=== PATIENT | female | born 1950 | race Caucasian/White ===

== ENCOUNTER 2016-09-29 07:38 | Outpatient (CLI) | payer MEDICAID | END 2016-09-29 23:59 | DX: I10 Essential (primary) hypertension (principal); E78.5 Hyperlipidemia, unspecified ==

== ENCOUNTER 2016-10-14 10:08 | Outpatient (CLI) | payer MEDICAID ==
--- NOTE | 2016-10-15 16:47 | Mammography Report ---
DIGITAL BILATERAL SCREENING MAMMOGRAM: 10/14/2016 CLINICAL HISTORY: A 65-year-old asymptomatic female. TECHNIQUE: Routine CC and MLO projections were obtained of the breasts. Bilateral exaggerated CC vie ws. COMPARISON: 05/2015, 10/2012, 06/2011, 05/2010, 05/2009. FINDINGS: Parenchymal tissue within both breasts is heterogeneously dense, which may lower the sensi tivity of mammography; however, there are no dominant masses, suspicious microcalcifications, or seco ndary signs of malignancy. In comparison to the previous studies, there are no significant changes. The pattern of glandular asymmetry is stable given positional differences. ASSESSMENT: NO MAMMOGRAPHIC EVIDENCE OF MALIGNANCY. NO SIGNIFICANT INTERVAL CHANGES. RECOMMENDATION: Screening mammography is recommended annually. BIRADS category 1 - negative. STANDARD QUALIFYING STATEMENTS 1. This examination was reviewed with the aid of Computed-Aided Detection (CAD). 2. A negative or benign imaging report should not delay biopsy if clinically suspicious findings are present. Consider surgical consultation if warranted. More than 5% of cancers are not identified by i maging. 3. Dense breasts may obscure an underlying neoplasm. JOB #: [id number] EXT JOB #:[id number]
== END 2016-10-14 10:09 | disposition home or self-care (01) ==
LOC: DI.N 10:08
PROVIDERS: ATTEND Nurse Practitioner Family
DX: Z12.31 Encounter for screening mammogram for malignant neoplasm of breast (principal)
CPT/HCPCS: 77067

== ENCOUNTER 2016-10-21 10:15 | Day surgery (SDC) | payer MEDICAID ==
[2016-10-21] MEDS ORDERED: LACTATED RINGERS 1,000 ML IV ONE ×2 (10:35→13:51)
[2016-10-21] MEDS ORDERED: fentaNYL 250 MCG/5 ML VIAL IVP ONE (13:00)
[2016-10-21] MEDS ORDERED: MIDAZOLAM 2 MG/2 ML VIAL IVP ONE (13:00)
== END 2016-10-21 10:16 | disposition home or self-care (01) ==
PROC: 0DBN8ZX Excision of Sigmoid Colon, Via Natural or Artificial Opening Endoscopic, Diagnostic (ICD-10-PCS; 2016-10-21)
PROC: 0DBP8ZX Excision of Rectum, Via Natural or Artificial Opening Endoscopic, Diagnostic (ICD-10-PCS; principal; 2016-10-21 11:15)
DX: Z12.11 Encounter for screening for malignant neoplasm of colon (principal); D12.5 Benign neoplasm of sigmoid colon; K62.1 Rectal polyp; K64.8 Other hemorrhoids; Z86.010 Personal history of colon polyps; F17.210 Nicotine dependence, cigarettes, uncomplicated; Z88.5 Allergy status to narcotic agent
CPT/HCPCS: 45380; J3010; J7120

== ENCOUNTER 2017-01-11 08:38 | Emergency (ER) | payer MEDICAID, MEDICARE ==
--- NOTE | 2017-01-11 09:42 | ED Physician Documentation ---
History of Present Illness - Stated complaint Stated Complaint: FEMALE - Chief complaint Chief Complaint: Abd Pain - Additonal information Additional information: hx from pt 66 f several weeks of worsening R inguinal pain she works as a stock supervisor and thought it was msucular but not better no fever no ab pain no NVD, no urinary sx no numbness or weakness s.p appy john CS and hyst but still has ovaries Review of Systems Constitutional: denies: Fever, Chills Cardiac: denies: Chest pain / pressure Respiratory: denies: Dyspnea GI: denies: Abdominal Pain : denies: Dysuria Musculoskeletal: reports: Extremity pain (R inguinal) Endocrine: denies: Easy bruising / bleeding Immunocompromised: denies: Immunocompromised PD PAST MEDICAL HISTORY - Past Surgical History General: Cholecystectomy, Appendectomy, Colonoscopy - Present Medications Home Medications: Ambulatory Orders Medication Instructions Recorded Confirmed Amlodipine/Atorvastatin 1 each PO DAILY 10/20/16 01/11/17 [Amlodipine-Atorvast 10-10 mg] Aspirin [Aspir-Low] 81 mg PO DAILY 10/20/16 01/11/17 Meloxicam [Mobic] 7.5 mg PO DAILY 10/20/16 01/11/17 Multivit with Calcium,Iron,Min 1 each PO DAILY 10/20/16 01/11/17 [Multiple Vitamins For Women] Triamterene/Hydrochlorothiazid 1 each PO DAILY 10/20/16 01/11/17 [Triamterene-Hctz 75-50 mg Tab] Cyclobenzaprine [Flexeril] 10 mg PO TID PRN #20 tablet 01/11/17 Ibuprofen [Motrin] 400 mg PO Q6H PRN #30 tablet 01/11/17 Lidocaine Patch 5% [Lidoderm Patch] 1 each TOP DAILY PRN #10 patch 01/11/17 - Allergies Allergies/Adverse Reactions: Allergies Allergy/AdvReac Type Severity Reaction Status Date / Time codeine AdvReac Nausea Verified 01/11/17 09:48 Hcpurci-Ole-Bmz Reductase AdvReac Itching Verified 01/11/17 09:48 Inhibitor PD ED PE NORMAL - Vitals Vital signs reviewed: Yes - General General: Alert and oriented X 3 - HEENT HEENT: PERRL - Neck Neck: Supple, no meningeal sign. No: No adenopathy (approx 1 cm smooth mobile high right ant cervical node - no clavicular or axillary adenopathy noted) - Cardiac Cardiac: RRR - Respiratory Respiratory: No respiratory distress, Clear bilaterally - Abdomen Abdomen: Soft, Non tender - Derm Derm: Normal color - Extremities Extremities: Other (TTP along inguina crease and very low RLQ, less so proximal medial thigh, no swelling or erythema, small viral inguinal adenopathy) Results - Vitals Vitals: Vital Signs - 24 hr 01/11/17 08:49 Temperature 36.5 C Heart Rate 96 Respiratory 20 Rate Blood Pressure 149/87 H O2 Saturation 96 Oxygen O2 Source Room air - Labs Labs: Laboratory Tests 01/11/17 01/11/17 09:45 10:30 WBC 15.8 H RBC 4.58 Hgb 13.8 Hct 40.4 MCV 88.2 MCH 30.2 MCHC 34.2 RDW 13.4 Plt Count 437 MPV 6.7 L Neut # 11.0 H Lymph # 3.7 H Coos # 0.8 Eos # 0.1 Baso # 0.1 Absolute Nucleated RBC 0.01 Nucleated RBCs 0.1 Urine Color YELLOW Urine Clarity CLEAR Urine pH 7.5 Ur Specific [place] <=1.005 Urine Protein NEGATIVE Urine Glucose (UA) NEGATIVE Urine Ketones NEGATIVE Urine Occult Blood NEGATIVE Urine Nitrite NEGATIVE Urine Bilirubin NEGATIVE Urine Urobilinogen 0.2 (NORMAL) Ur Leukocyte Esterase NEGATIVE Ur Microscopic Review NOT INDICATED Urine Culture Comments NOT INDICATED PD MEDICAL DECISION MAKING - ED course ED course: UA, CT and 2/2 cervical and inguinal adenopathy will get CBC Departure - Departure Disposition: 01 Home, Self Care Clinical Impression: Right inguinal pain Condition: Good Instructions: ED Strain Muscle Ext Follow-Up: Haley Casillas ARNP [Primary Care Provider] - (this week ) Prescriptions: Cyclobenzaprine [Flexeril] 10 mg PO TID PRN #20 tablet PRN Reason: Spasms Lidocaine Patch 5% [Lidoderm Patch] 1 each TOP DAILY PRN #10 patch PRN Reason: Pain Ibuprofen [Motrin] 400 mg PO Q6H PRN #30 tablet PRN Reason: Pain Comments: The CT scan was fine - no deep hernia or deep infection and no significant swollen lymph nodes within the abdominal cavity Your labs were fine too - the white blood cell count was a little bit elevated which can happen with stress, pain inflammation, and/or infection. So I think the pain is muscular - recommend anti-inflammatories, muscle relaxants and lidocaine patches applied up to 12 hr a day Several enlarged lymph nodes were noticed in the neck and inguinal region on exam today - this can occur with inflammation and infection but also with certain cancers - it is important that you follow up with your PMD for further evaluation Please get your blood pressure rechecked too - it was high today
[2017-01-11 09:54] LABS: BILIRUBIN,URINE NEGATIVE (NEGATIVE); PH,URINE 7.5 PH (5.0-7.5)
[2017-01-11 09:59] LABS: UA CHARGE (STRIP ONLY) YES; UR CULTURE IF IND NOT INDICATED
[2017-01-11 10:38] LABS: BASOPHILS # (AUTO) 0.1 10^3/uL (0.0-0.1); BASOPHILS % (AUTO) 0.7 %; EOSINOPHILS # (AUTO) 0.1 10^3/uL (0.0-0.7); EOSINOPHILS % (AUTO) 0.6 %; HCT - HEMATOCRIT 40.4 % (37.0-47.0); HGB - HEMOGLOBIN 13.8 g/dL (12.0-16.0); LYMPHOCYTES # (AUTO) 3.7 10^3/uL (1.5-3.5); LYMPHOCYTES % (AUTO) 23.8 %; MEAN CORPUSCULAR HEMOGLOBIN 30.2 pg (27.0-31.0); MEAN CORPUSCULAR HGB CONC 34.2 g/dL (32.0-36.0); MEAN CORPUSCULAR VOLUME 88.2 fL (81.0-99.0); MEAN PLATELET VOLUME 6.7 fL (7.9-10.8); MONOCYTES # (AUTO) 0.8 10^3/uL (0.0-1.0); NEUTROPHILS % (AUTO) 69.9 %; NUCLEATED RED BLOOD CELLS AUTO 0.1 /100WBC; RED BLOOD COUNT 4.58 10^6/uL (4.20-5.40); RED CELL DISTRIBUTION WIDTH 13.4 % (12.0-15.0); UNCORRECTED WHITE BLOOD COUNT 15.8 x10^3/uL; WHITE BLOOD COUNT 15.8 x10^3/uL (4.8-10.8)
--- NOTE | 2017-01-11 10:51 | CT Preliminary Report ---
Exam: CT Abdomen/Pelvis W/O IMPRESSION: 1. No renal or ureteral stones and no hydronephrosis on either side. 2. No acute focal inflammatory changes or evidence of obstruction identified within the abdomen or pe lvis. 3. No adenopathy. 4. No inguinal hernia visualized. [facility] SITE ID: [id number]
--- NOTE | 2017-01-11 10:54 | CT Report ---
EXAM: CT ABDOMEN AND PELVIS (CT KUB) EXAM DATE: 01/11/2017 10:26 AM. CLINICAL HISTORY: Very low RLQ / inguinal pain and adenopathy. COMPARISONS: None. TECHNIQUE: Routine axial helical CT imaging was performed through the abdomen and pelvis without IV c ontrast. Reconstructions: Coronal and sagittal. In accordance with CT protocol optimization, one or more of the following dose reduction techniques w ere utilized for this exam: automated exposure control, adjustment of mA and/or KV based on patient s ize, or use of iterative reconstructive technique. FINDINGS: Lung Bases: Small amount of linear atelectasis/scarring. Right Kidney/Ureter: No stones, hydronephrosis, or hydroureter. No perinephric fat stranding. Left Kidney/Ureter: No stones, hydronephrosis, or hydroureter. No perinephric fat stranding. Other Solid Organs: Ovoid possible cyst within the left lobe measuring approximately 1.6 cm. Punctate calcification in the right lobe near the dome. Spleen, bladder appear unremarkable. Right adrenal ap pears unremarkable. Mild thickening with possible low-attenuation nodule of the left adrenal, suggest ing an adenoma. Gallbladder/Bile Ducts: Prior cholecystectomy. No biliary ductal dilation. Peritoneal Cavity: No bowel obstruction. No acute focal inflammatory change or no discrete collection . No bulky adenopathy. No free air. No free fluid. Mild colonic diverticulosis. Appendix not definiti vely visualized. Pelvic Organs: Urinary bladder appears unremarkable. Uterus appears surgically absent. Vasculature: Mild atherosclerotic vascular calcification. No aneurysmal dilation. Other: Mild apparent bony demineralization and degenerative change of the spine. No inguinal hernia visualized. IMPRESSION: 1. No renal or ureteral stones and no hydronephrosis on either side. 2. No acute focal inflammatory changes or evidence of obstruction identified within the abdomen or pe lvis. 3. No adenopathy. 4. No inguinal hernia visualized. [facility] Referring Provider Line: [phone] SITE ID: [id number]
[2017-01-11 11:24] VITALS: BP 136/77
== END 2017-01-11 11:36 | disposition home or self-care (01) ==
LOC: ED 08:38
DX: R10.2 Pelvic and perineal pain (principal); R03.0 Elevated blood-pressure reading, without diagnosis of hypertension; Z79.82 Long term (current) use of aspirin
CPT/HCPCS: 36415; 74176; 81001; 81003; 85025; 87086; 99283; 99284

== ENCOUNTER 2017-01-27 08:08 | Outpatient (CLI) | payer MEDICAID, MEDICARE ==
--- NOTE | 2017-01-27 12:43 | DEXA Report ---
DEXA SCAN: 01/27/2017 CLINICAL INDICATION: Postmenopausal. TECHNIQUE: Dual energy x-ray absorptiometry (DXA) was performed on a [employer] system. Regions measured are the AP spine, femoral neck, and, if needed, forearm. COMPARISON: None. In accordance with the International Society for Clinical Densitometry (ISCD) guidelines, data from previous exams may be reanalyzed using current recommendations and techniques. This is done to allow a more accurate basis for comparison with the current study. FINDINGS: The data for the lumbar spine is as follows: REGION BMD (g/cm/cm) T-SCORE Z-SCORE L1 1.031 -0.8 0.7 L2 1.00 -1.7 -0.1 L3 1.092 -0.9 0.6 L4 1.143 -0.5 1.0 TOTAL 1.072 -0.9 0.6 NOTE: All evaluable vertebrae are used for classification. The data for the hip is as follows: REGION BMD (g/cm/cm) T-SCORE Z-SCORE Neck 0.960 -0.6 0.9 TOTAL 0.960 -0.4 0.8 NOTE: The femoral neck or total proximal femur, whichever is lowest, is used for classification. IMPRESSION: THE WHO CLASSIFICATION BASED ON THE INTERNATIONAL REFERENCE STANDARD IS NORMAL. THE FRACTURE RISK IS NOT INCREASED. RECOMMENDATION: Patients with diagnosis of osteoporosis or osteopenia should have regular bone mineral density assessment. For those eligible for Medicare, routine testing is allowed once every 2 years. Testing frequency can be increased for patients who have rapidly progressing disease or for those who are receiving medical therapy to restore bone mass. COMMENT: World Health Organization (WHO) definitions for osteoporosis and osteopenia: NORMAL BMD: T-score at -1.0 or higher, fracture risk is low. OSTEOPENIA BMD: T-score between -1.0 and -2.5, fracture risk is increased. OSTEOPOROSIS BMD: T-score at -2.5 or lower, fracture risk high. National Osteoporosis Foundation recommends: 1. Obtain adequate dietary calcium (at least 1200 mg per day) and vitamin D (400 -800 international units per day). 2. Participate, as appropriate, in regular weightbearing and muscle- strengthening exercise. 3. Avoid tobacco use and reduce alcohol and caffeine intake. 4. For more detailed information see the website at www.NOF.org. MTDD
== END 2017-01-27 08:09 | disposition home or self-care (01) ==
LOC: DI 08:08
PROVIDERS: ATTEND Nurse Practitioner Family
DX: Z00.00 Encounter for general adult medical examination without abnormal findings (principal)
CPT/HCPCS: 77080

== ENCOUNTER 2017-06-16 14:57 | Outpatient (CLI) | payer MEDICARE ==
[2017-06-16 12:45] LABS: BASOPHILS # (AUTO) 0.1 10^3/uL (0.0-0.1); BASOPHILS % (AUTO) 1.2 %; EOSINOPHILS # (AUTO) 0.2 10^3/uL (0.0-0.7); EOSINOPHILS % (AUTO) 1.7 %; HCT - HEMATOCRIT 40.7 % (37.0-47.0); HGB - HEMOGLOBIN 13.7 g/dL (12.0-16.0); LYMPHOCYTES # (AUTO) 3.3 10^3/uL (1.5-3.5); LYMPHOCYTES % (AUTO) 36.7 %; MEAN CORPUSCULAR HEMOGLOBIN 30.7 pg (27.0-31.0); MEAN CORPUSCULAR HGB CONC 33.6 g/dL (32.0-36.0); MEAN CORPUSCULAR VOLUME 91.2 fL (81.0-99.0); MEAN PLATELET VOLUME 7.7 fL (7.9-10.8); MONOCYTES # (AUTO) 0.5 10^3/uL (0.0-1.0); MONOCYTES % (AUTO) 5.7 %; NEUTROPHILS % (AUTO) 54.7 %; RED BLOOD COUNT 4.46 10^6/uL (4.20-5.40); RED CELL DISTRIBUTION WIDTH 13.4 % (12.0-15.0); UNCORRECTED WHITE BLOOD COUNT 9.1 x10^3/uL; WHITE BLOOD COUNT 9.1 x10^3/uL (4.8-10.8)
[2017-06-16 13:20] LABS: ALBUMIN/GLOBULIN RATIO 1.4 (1.0-2.2); BILIRUBIN,TOTAL 0.5 mg/dL (0.2-1.0); BUN - BLOOD UREA NITROGEN 24 mg/dL (6-20); CALCIUM 9.1 mg/dL (8.5-10.3); CARBON DIOXIDE - CO2 26 mmol/L (21-32); CHLORIDE 104 mmol/L (101-111); CHOL/HDL RATIO 3.8 (<4.4); CHOLESTEROL 240 mg/dL; CREATININE 0.9 mg/dL (0.4-1.0); GFR - MDRD 63 (>89); GLUCOSE 87 mg/dL (70-100); HDL CHOLESTEROL 64 mg/dL; LDL/HDL RATIO 2.4 (<4.4); POTASSIUM 3.3 mmol/L (3.5-5.0); SODIUM 137 mmol/L (135-145); TOTAL PROTEIN 7.5 g/dL (6.7-8.2); TRIGLYCERIDES 111 mg/dL; VLDL CHOLESTEROL 22 mg/dL
== END 2017-06-16 14:58 | disposition home or self-care (01) ==
LOC: LAB.N 14:57
PROVIDERS: ATTEND Nurse Practitioner Family
DX: I10 Essential (primary) hypertension (principal); E78.5 Hyperlipidemia, unspecified
CPT/HCPCS: 36415; 80053; 80061; 84443; 85025

== ENCOUNTER 2017-09-10 07:46 | Outpatient (CLI) | payer MEDICARE ==
[2017-09-10 13:41] LABS: BUN - BLOOD UREA NITROGEN 22 mg/dL (6-20); CALCIUM 9.4 mg/dL (8.5-10.3); CARBON DIOXIDE - CO2 27 mmol/L (21-32); CHLORIDE 104 mmol/L (101-111); CHOL/HDL RATIO 4.3 (<4.4); CHOLESTEROL 269 mg/dL; CREATININE 0.9 mg/dL (0.4-1.0); GFR - MDRD 63 (>89); GLUCOSE 86 mg/dL (70-100); HDL CHOLESTEROL 63 mg/dL; LDL CHOLESTEROL,CALCULATED 169 mg/dL; LDL/HDL RATIO 2.7 (<4.4); SODIUM 139 mmol/L (135-145); VLDL CHOLESTEROL 37 mg/dL
== END 2017-09-10 07:47 ==
LOC: LAB.N 07:46
PROVIDERS: ATTEND Nurse Practitioner Family
DX: E87.6 Hypokalemia (principal); N18.2 Chronic kidney disease, stage 2 (mild); E78.5 Hyperlipidemia, unspecified
CPT/HCPCS: 36415; 80048; 80061; 83721

== ENCOUNTER 2017-11-06 10:12 | Outpatient (CLI) | payer MEDICARE ==
--- NOTE | 2017-11-09 11:15 | Mammography Report ---
DIGITAL SCREENING MAMMOGRAM: 11/06/2017 CLINICAL INDICATION: A 66-year-old, for screening. COMPARISON: 10/2016, 05/2015, 10/2012, 06/2011, 05/2010. TECHNIQUE: Routine CC and MLO projections were obtained of the breasts. Bilateral laterally exaggerated craniocaudal views. FINDINGS: The breasts demonstrate heterogeneously dense fibroglandular parenchyma bilaterally. Coarse, typically benign calcifications are present. No suspicious masses, clustered microcalcifications, or regions of architectural distortion are identified. IMPRESSION: BENIGN FINDINGS. RECOMMENDATION: ROUTINE ANNUAL SCREENING UNLESS OTHERWISE CLINICALLY INDICATED. BIRADS CATEGORY 2-BENIGN FINDINGS. STANDARD QUALIFYING STATEMENTS: 1. This examination was reviewed with the aid of Computer-Aided Detection (CAD). 2. A negative or benign imaging report should not delay biopsy if clinically suspicious findings are present. Consider surgical consultation if warranted. More than 5% of cancers are not identified by imaging. 3. Dense breasts may obscure an underlying neoplasm. TD: 11/09/2017 11:14
== END 2017-11-06 10:13 | disposition home or self-care (01) ==
LOC: DI.N 10:12
PROVIDERS: ATTEND Nurse Practitioner Family
DX: Z12.31 Encounter for screening mammogram for malignant neoplasm of breast (principal)
CPT/HCPCS: 77067

== ENCOUNTER 2018-09-10 07:04 | Outpatient (CLI) | payer MEDICARE ==
[2018-09-10 13:29] LABS: BASOPHILS # (AUTO) 0.1 10^3/uL (0.0-0.1); BASOPHILS % (AUTO) 1.2 %; EOSINOPHILS # (AUTO) 0.2 10^3/uL (0.0-0.7); EOSINOPHILS % (AUTO) 2.1 %; HGB - HEMOGLOBIN 15.2 g/dL (12.0-16.0); LYMPHOCYTES # (AUTO) 3.3 10^3/uL (1.5-3.5); LYMPHOCYTES % (AUTO) 32.6 %; MEAN CORPUSCULAR HEMOGLOBIN 31.2 pg (27.0-31.0); MEAN CORPUSCULAR HGB CONC 34.1 g/dL (32.0-36.0); MEAN CORPUSCULAR VOLUME 91.5 fL (81.0-99.0); MEAN PLATELET VOLUME 7.9 fL (7.9-10.8); MONOCYTES # (AUTO) 0.6 10^3/uL (0.0-1.0); MONOCYTES % (AUTO) 5.8 %; NEUTROPHILS # (AUTO) 5.9 10^3/uL (1.5-6.6); NEUTROPHILS % (AUTO) 58.3 %; PLT - PLATELET COUNT 327 10^3/uL (130-450); RED BLOOD COUNT 4.88 10^6/uL (4.20-5.40); RED CELL DISTRIBUTION WIDTH 13.6 % (12.0-15.0); WHITE BLOOD COUNT 10.1 x10^3/uL (4.8-10.8)
[2018-09-10 14:06] LABS: ALBUMIN 4.6 g/dL (3.2-5.5); ALBUMIN/GLOBULIN RATIO 1.5 (1.0-2.2); ALKALINE PHOSPHATASE 62 IU/L (42-121); ALT ALANINE AMINOTRANSFERASE 37 IU/L (10-60); AST ASPARTATE AMINOTRANSFERASE 32 IU/L (10-42); BILIRUBIN,TOTAL 0.8 mg/dL (0.2-1.0); BUN - BLOOD UREA NITROGEN 16 mg/dL (6-20); CALCIUM 9.5 mg/dL (8.5-10.3); CARBON DIOXIDE - CO2 29 mmol/L (21-32); CHLORIDE 101 mmol/L (101-111); CHOL/HDL RATIO 3.8 (<4.4); CHOLESTEROL 238 mg/dL; CREATININE 0.7 mg/dL (0.4-1.0); GFR - MDRD 84 (>89); GLUCOSE 83 mg/dL (70-100); HDL CHOLESTEROL 62 mg/dL; LDL CHOLESTEROL,CALCULATED 144 mg/dL; LDL/HDL RATIO 2.3 (<4.4); SODIUM 140 mmol/L (135-145); TOTAL PROTEIN 7.6 g/dL (6.7-8.2); VLDL CHOLESTEROL 32 mg/dL
== END 2018-09-10 07:05 | disposition home or self-care (01) ==
LOC: LAB.WCP 07:04
PROVIDERS: ATTEND Physician Assistant Medical
DX: I12.9 Hypertensive chronic kidney disease with stage 1 through stage 4 chronic kidney disease, or unspecified chronic kidney disease (principal); N18.2 Chronic kidney disease, stage 2 (mild); E87.6 Hypokalemia; E78.5 Hyperlipidemia, unspecified
CPT/HCPCS: 36415; 80053; 80061; 83721; 84443; 85025

== ENCOUNTER 2018-10-09 14:51 | Outpatient (CLI) | payer MEDICARE ==
--- NOTE | 2018-10-11 08:23 | Ultrasound Report ---
Reason: PELVIC PAIN Procedure Date: 10/09/2018 Accession Number: [id number] / [id number] Procedure: US - Pelvic w/Transvaginal CPT Code: FULL RESULT: EXAM: PELVIC ULTRASOUND EXAM DATE: 10/09/2018 03:24 PM. CLINICAL HISTORY: Pelvic pain. COMPARISON: ABDOMEN/PELVIS W/O 01/11/2017 10:16 AM. TECHNIQUE: Realtime transabdominal pelvic scan performed to identify the uterus and adnexa and as an overview of other pelvic structures, followed by transvaginal scan to provide greater detail of the uterus and adnexa, with static image documentation. FINDINGS: Uterus: Surgically absent. Right Ovary: 1.9 x 1.0 x 1.7 cm, volume 1.7 cc. Normal echotexture and blood flow. Left Ovary: 2.4 x 1.6 x 2.3 cm, volume 4.5 cc. Normal echotexture and blood flow. Free Fluid: None. Other: None. IMPRESSION: 1. Previous hysterectomy. 2. Both ovaries appear normal. No adnexal lesions. 3. If symptoms persist, recommend contrast-enhanced CT evaluation. [facility]
== END 2018-10-09 14:52 | disposition home or self-care (01) ==
LOC: DI 14:51
PROVIDERS: ATTEND Physician Assistant Medical
DX: R10.2 Pelvic and perineal pain (principal); Z90.710 Acquired absence of both cervix and uterus
CPT/HCPCS: 76830; 76856

== ENCOUNTER 2019-09-30 07:30 | Outpatient (CLI) | payer MEDICARE ==
[2019-09-30 13:12] LABS: BASOPHILS # (AUTO) 0.1 10^3/uL (0.0-0.1); BASOPHILS % (AUTO) 1.3 %; EOSINOPHILS # (AUTO) 0.2 10^3/uL (0.0-0.7); LYMPHOCYTES % (AUTO) 35.6 %; MEAN CORPUSCULAR HEMOGLOBIN 29.5 pg (27.0-31.0); MEAN CORPUSCULAR HGB CONC 31.9 g/dL (32.0-36.0); MEAN CORPUSCULAR VOLUME 92.3 fL (81.0-99.0); MONOCYTES # (AUTO) 0.6 10^3/uL (0.0-1.0); MONOCYTES % (AUTO) 6.4 %; NEUTROPHILS # (AUTO) 4.6 10^3/uL (1.5-6.6); NEUTROPHILS % (AUTO) 54.3 %; PLT - PLATELET COUNT 322 10^3/uL (130-450); RED BLOOD COUNT 5.09 10^6/uL (4.20-5.40); RED CELL DISTRIBUTION WIDTH 13.3 % (12.0-15.0); WHITE BLOOD COUNT 8.5 x10^3/uL (4.8-10.8)
[2019-09-30 13:23] LABS: ALBUMIN 4.3 g/dL (3.2-5.5); ALBUMIN/GLOBULIN RATIO 1.4 (1.0-2.2); ALKALINE PHOSPHATASE 60 IU/L (42-121); ALT ALANINE AMINOTRANSFERASE 36 IU/L (10-60); AST ASPARTATE AMINOTRANSFERASE 28 IU/L (10-42); BUN - BLOOD UREA NITROGEN 25 mg/dL (6-20); CALCIUM 9.3 mg/dL (8.5-10.3); CARBON DIOXIDE - CO2 27 mmol/L (21-32); CHLORIDE 102 mmol/L (101-111); CHOL/HDL RATIO 3.9 (<4.4); CHOLESTEROL 236 mg/dL; CREATININE 0.9 mg/dL (0.4-1.0); GFR - MDRD 62 (>89); GLUCOSE 85 mg/dL (70-100); HDL CHOLESTEROL 61 mg/dL; LDL CHOLESTEROL,CALCULATED 141 mg/dL; LDL/HDL RATIO 2.3 (<4.4); SODIUM 139 mmol/L (135-145); TOTAL PROTEIN 7.3 g/dL (6.7-8.2); VLDL CHOLESTEROL 34 mg/dL
== END 2019-09-30 23:59 | disposition home or self-care (01) ==
LOC: LAB.WCP 07:30
PROVIDERS: ATTEND Physician Assistant Medical
DX: I10 Essential (primary) hypertension (principal); E78.5 Hyperlipidemia, unspecified
CPT/HCPCS: 36415; 80053; 80061; 83721; 85025

== ENCOUNTER 2020-06-26 08:00 | Outpatient (CLI) | payer MEDICARE ==
[2020-06-26 11:49] LABS: BASOPHILS # (AUTO) 0.1 10^3/uL (0.0-0.1); BASOPHILS % (AUTO) 1.2 %; EOSINOPHILS # (AUTO) 0.2 10^3/uL (0.0-0.7); EOSINOPHILS % (AUTO) 2.4 %; HGB - HEMOGLOBIN 15.1 g/dL (12.0-16.0); LYMPHOCYTES # (AUTO) 2.7 10^3/uL (1.5-3.5); LYMPHOCYTES % (AUTO) 31.3 %; MEAN CORPUSCULAR HEMOGLOBIN 30.3 pg (27.0-31.0); MEAN CORPUSCULAR HGB CONC 32.8 g/dL (32.0-36.0); MEAN CORPUSCULAR VOLUME 92.4 fL (81.0-99.0); MEAN PLATELET VOLUME 9.4 fL (7.9-10.8); MONOCYTES # (AUTO) 0.6 10^3/uL (0.0-1.0); MONOCYTES % (AUTO) 7.3 %; NEUTROPHILS % (AUTO) 57.6 %; PLT - PLATELET COUNT 375 10^3/uL (130-450); RED BLOOD COUNT 4.98 10^6/uL (4.20-5.40); RED CELL DISTRIBUTION WIDTH 13.3 % (12.0-15.0); WHITE BLOOD COUNT 8.6 x10^3/uL (4.8-10.8)
[2020-06-26 12:22] LABS: ALBUMIN 4.5 g/dL (3.2-5.5); ALBUMIN/GLOBULIN RATIO 1.5 (1.0-2.2); BILIRUBIN,TOTAL 0.6 mg/dL (0.2-1.0); CALCIUM 9.6 mg/dL (8.5-10.3); CREATININE 0.8 mg/dL (0.4-1.0); TOTAL PROTEIN 7.6 g/dL (6.7-8.2)
== END 2020-06-26 23:59 | disposition home or self-care (01) ==
LOC: LAB.WCP 08:00
PROVIDERS: ATTEND Physician Assistant
DX: I10 Essential (primary) hypertension (principal)
CPT/HCPCS: 36415; 80053; 84443; 85025

== ENCOUNTER 2020-10-08 14:40 | Outpatient (CLI) | payer MEDICARE ==
--- NOTE | 2020-10-08 15:33 | CT Report ---
PROCEDURE: Low Dose Lung Cancer Screen INDICATIONS: TOBACCO ABUSE TECHNIQUE: Noncontrast low-dose 5 mm thick sections acquired from the pulmonary apices to the posterior costophr enic angles. 7 mm thick coronal and sagittal MIP reformats were then acquired. For radiation dose r eduction, the following was used: automated exposure control, adjustment of mA and/or kV according t o patient size. COMPARISON: None. FINDINGS: Image quality: Excellent. Lungs and pleura: The lungs have no focal consolidation. There is mild atelectasis in the lung bases . Mild centrilobular emphysematous changes are noted. No nodules or masses. The aorta has scattered a therosclerotic changes. Mediastinum: Heart size is normal. No pericardial effusion. No mediastinal adenopathy by size crit eria. Thoracic aorta and central pulmonary arteries are normal in size. Esophagus is normal in sami leila. No hiatal hernia. Bones and chest wall: No suspicious bony lesions. No vertebral body compression fractures. No axil saumya or supraclavicular adenopathy by size criteria. The thyroid is normal in size. Abdomen: Visualized upper abdomen solid organs and bowel loops appear normal in the absence of contr ast. IMPRESSION: No pulmonary nodules or masses. Lung RADS 1. Negative. Continue annual screening low dose lung CT. Reviewed by: Gui Escamilla on 10/08/2020 3:32 PM PST Approved by: Gui Escamilla on 10/08/2020 3:32 PM PST Station ID: [id number]
== END 2020-10-08 14:41 | disposition home or self-care (01) ==
LOC: DI 14:40
PROVIDERS: ATTEND Physician Assistant Medical
DX: Z12.2 Encounter for screening for malignant neoplasm of respiratory organs (principal); J43.2 Centrilobular emphysema; F17.210 Nicotine dependence, cigarettes, uncomplicated

== ENCOUNTER 2020-10-16 14:18 | Outpatient (CLI) | payer MEDICARE ==
--- NOTE | 2020-10-17 15:09 | Mammography Report ---
BILATERAL DIGITAL SCREENING MAMMOGRAM 3D/2D: 10/16/2020 CLINICAL: Routine screening. Comparison is made to exams dated: 11/06/2017 mammogram and 10/14/2016 mammogram - [facility]. There are scattered fibroglandular elements in both breasts. No significant masses, calcifications, or other findings are seen in either breast. There has been no significant interval change. IMPRESSION: NEGATIVE There is no mammographic evidence of malignancy. A 1 year screening mammogram is recommended. This exam was interpreted at Station ID: [id number]. NOTE: For mammograms, a report in lay terms will be sent to the patient. Approximately 15% of breast malignancies will not be visualized mammographically. In the management of a palpable breast mass, a negative mammogram must not discourage biopsy of a clinically suspicious lesion. Electronically Signed By: Tony Garcia M.D. ar/penrad:10/16/2020 16:35:50 ACR BI-RADS Category 1: Negative 3341F PARENCHYMAL PATTERN: (A) - The breast(s) demonstrate(s) scattered fibroglandular densities. BI-RADS CATEGORY: (1) - 1 RECOMMENDATION: (ANNUAL) - Recommend routine annual screening mammography. [id number] 1 year screening LATERALITY: (B)
== END 2020-10-16 14:19 | disposition home or self-care (01) ==
LOC: DI.N 14:18
DX: Z12.31 Encounter for screening mammogram for malignant neoplasm of breast (principal)

== ENCOUNTER 2021-05-13 15:37 | Outpatient (CLI) | payer MEDICARE ==
--- NOTE | 2021-05-13 17:07 | XRAY Report ---
PROCEDURE: Wrist 2 View RT INDICATIONS: SPRAIN OF R WRIST TECHNIQUE: 2 views of the wrist were acquired. COMPARISON: X-ray wrist 04/15/2015 FINDINGS: Bones: No fractures or dislocations. No suspicious bony lesions. Mild first CMC degenerative narro wing. Soft tissues: No suspicious soft tissue calcifications. IMPRESSION: No visualized acute fracture or dislocation. However, occult injury cannot be excluded. Recommend janusz rt interval imaging follow-up in 7-10 days as clinically indicated for additional evaluation. Reviewed by: Angela Herman MD on 05/13/2021 5:06 PM PDT Approved by: Angela Herman MD on 05/13/2021 5:06 PM PDT Station ID: [id number]
== END 2021-05-13 15:38 ==
LOC: DI.N 15:37
PROVIDERS: ATTEND Nurse Practitioner
DX: S63.591A Other specified sprain of right wrist, initial encounter (principal)

== ENCOUNTER 2021-08-08 08:00 | Outpatient (CLI) | payer MEDICARE ==
[2021-08-08 11:58] LABS: BASOPHILS # (AUTO) 0.1 10^3/uL (0.0-0.1); EOSINOPHILS # (AUTO) 0.2 10^3/uL (0.0-0.7); EOSINOPHILS % (AUTO) 1.5 %; HCT - HEMATOCRIT 44.4 % (37.0-47.0); LYMPHOCYTES # (AUTO) 3.1 10^3/uL (1.5-3.5); LYMPHOCYTES % (AUTO) 28.9 %; MEAN CORPUSCULAR HGB CONC 33.8 g/dL (32.0-36.0); MEAN CORPUSCULAR VOLUME 91.7 fL (81.0-99.0); MEAN PLATELET VOLUME 9.7 fL (7.9-10.8); MONOCYTES # (AUTO) 0.6 10^3/uL (0.0-1.0); MONOCYTES % (AUTO) 5.8 %; NEUTROPHILS # (AUTO) 6.7 10^3/uL (1.5-6.6); NEUTROPHILS % (AUTO) 62.4 %; PLT - PLATELET COUNT 382 10^3/uL (130-450); RED BLOOD COUNT 4.84 10^6/uL (4.20-5.40); RED CELL DISTRIBUTION WIDTH 13.2 % (12.0-15.0); WHITE BLOOD COUNT 10.8 x10^3/uL (4.8-10.8)
[2021-08-08 12:30] LABS: ALBUMIN 4.5 g/dL (3.2-5.5); ALBUMIN/GLOBULIN RATIO 1.6 (1.0-2.2); ALKALINE PHOSPHATASE 63 IU/L (42-121); ALT ALANINE AMINOTRANSFERASE 39 IU/L (10-60); AST ASPARTATE AMINOTRANSFERASE 34 IU/L (10-42); BUN - BLOOD UREA NITROGEN 23 mg/dL (6-20); CALCIUM 9.7 mg/dL (8.5-10.3); CARBON DIOXIDE - CO2 28 mmol/L (21-32); CHLORIDE 104 mmol/L (101-111); CHOL/HDL RATIO 3.7 (<4.4); CHOLESTEROL 258 mg/dL; CREATININE 0.9 mg/dL (0.4-1.0); GFR - MDRD 62 (>89); GLUCOSE 95 mg/dL (70-100); HDL CHOLESTEROL 69 mg/dL; LDL CHOLESTEROL,CALCULATED 168 mg/dL; LDL/HDL RATIO 2.4 (<4.4); SODIUM 140 mmol/L (135-145); THYROID STIMULATING HORMONE 1.8 uIU/mL (0.34-5.60); TOTAL PROTEIN 7.4 g/dL (6.7-8.2); TRIGLYCERIDES 103 mg/dL; VLDL CHOLESTEROL 21 mg/dL
== END 2021-08-08 23:59 ==
LOC: LAB.WCP 08:00
PROVIDERS: ATTEND Physician Assistant Medical
DX: I10 Essential (primary) hypertension (principal); E78.5 Hyperlipidemia, unspecified
CPT/HCPCS: 36415; 80053; 80061; 83721; 84443; 85025

== ENCOUNTER 2021-08-13 08:00 | Outpatient (CLI) | payer MEDICARE | END 2021-08-13 23:59 | LOC: LAB 08:00 | PROVIDERS: ATTEND Physician Assistant Medical | DX: J06.9 Acute upper respiratory infection, unspecified (principal); Z20.822 Contact with and (suspected) exposure to COVID-19 ==

== ENCOUNTER 2022-05-16 08:10 | Outpatient (CLI) | payer MEDICARE ==
--- NOTE | 2022-05-19 09:19 | Ultrasound Report ---
LIMITED ULTRASOUND OF RIGHT BREAST: 05/16/2022 CLINICAL: Patient returns today to evaluate a focal asymmetry in the right breast. Diffuse right rod st pain. Comparison is made to exams dated: 05/16/2022 mammogram, 10/16/2020 mammogram, 11/06/2017 mammogram, mammogram, 05/07/2015 mammogram, and 10/26/2012 mammogram - [facility]. Color flow and real-time ultrasound of the right breast 8-9 o'clock region were performed. Gordon scal e images of the real-time examination were reviewed. There is a 0.5 cm x 0.5 cm x 0.4 cm oval cyst in the right breast at 9 o'clock posterior depth 8 cm f rom the nipple. This oval cyst is anechoic. This correlates to the reported pain and with mammograp hy findings. Color flow imaging demonstrates that there is no vascularity present. There also is a benign 0.6 cm x 0.5 cm x 0.3 cm lymph node in the right breast at 8 o'clock posterior depth 7 cm from the nipple. This correlates as an incidental finding. Color flow imaging demonstra courtney that there is no vascularity present. IMPRESSION: BENIGN There is no sonographic evidence of malignancy. The 0.5 cm cyst in the right breast at 9 o'clock posterior depth is consistent with a simple cyst, co rresponds to the painful area and mammographic finding, and is benign. The 0.6 cm incidental lymph node in the right breast at 8 o'clock posterior depth is benign. Return to annual mammogram screening schedule is recommended. Findings and recommendations were conveyed to the patient at time of exam. This exam was interpreted at Station ID: [id number]. Electronically Signed By: Marlene talavera/:05/16/2022 10:05:23 Ultrasound BI-RADS: 2 Benign BI-RADS CATEGORY: (2) - 2 Mammogram [id number] return to screening LATERALITY: (B)
--- NOTE | 2022-05-19 09:19 | Mammography Report ---
BILATERAL DIGITAL DIAGNOSTIC MAMMOGRAM 3D/2D: 05/16/2022 CLINICAL: Diffuse right breast pain. Due for bilateral. Comparison is made to exams dated: 10/16/2020 mammogram, 11/06/2017 mammogram, 10/14/2016 mammogram, and 05/07/2015 mammogram - [facility]. Both breasts are heterogeneously dense, which may obscure small masses (category c / 51-75% glandula r tissue). There is a 6 mm oval focal asymmetry with a circumscribed margin in the right breast at 8 o'clock mid dle depth. This is seen in additional views. This is not significantly changed and possibly correla courtney to the area of reported pain. No other significant masses, calcifications, or other findings are seen in either breast. IMPRESSION: INCOMPLETE: NEEDS ADDITIONAL IMAGING EVALUATION The 6 mm oval focal asymmetry in the right breast most likely is a cyst or a lymph node, has not sign ificanty changed, but may correlate to the area of pain. An ultrasound is recommended. This was per formed immediately following this exam. Based on the Tyrer Cuzick model (a risk assessment model) the patients lifetime risk is 4.9% and her 10 year risk is 3.1%. According to the ACR, ACS, and NCCN guidelines, an annual breast MRI exam virgen g with mammogram is recommended if the patients lifetime risk is 20% or greater. This exam was interpreted at Station ID: [id number]. NOTE: For mammograms, a report in lay terms will be sent to the patient. Approximately 15% of breast malignancies will not be visualized mammographically. In the management of a palpable breast mass, a negative mammogram must not discourage biopsy of a clinically suspicious lesion. Electronically Signed By: Marlene talavera/:05/16/2022 08:57:07 ACR BI-RADS Category 0: Incomplete 3340F PARENCHYMAL PATTERN: (D) - The breast(s) demonstrate(s) heterogeneously dense fibroglandular parenchy ma. BI-RADS CATEGORY: (0) - 0 Ultrasound [id number] Immediate follow-up LATERALITY: (B)
== END 2022-05-16 08:11 | disposition home or self-care (01) ==
LOC: DI 08:10
PROVIDERS: ATTEND Physician Assistant
DX: N64.4 Mastodynia (principal); N60.01 Solitary cyst of right breast

== ENCOUNTER 2022-05-30 11:50 | Day surgery (SDC) | payer MEDICARE ==
[2022-05-30] MEDS ORDERED: PROPOFOL 500 MG/50 ML 500 MG/50 ML VIAL ONE (12:07)
[2022-05-30] MEDS ORDERED: LACTATED RINGERS 1,000 ML IV ONE ×2 (12:08→13:52)
--- NOTE | 2022-05-30 12:37 | ANESTHESIA ---
Pre-Anesthesia VS, & Labs - Diagnosis history of colon polyps - Procedure colonoscopy Vital Signs: Temp Pulse Resp BP Pulse Ox O2 Flow Rate 36.5 C 87 16 144/84 H 95 0 05/30/22 12:08 05/30/22 12:08 05/30/22 12:08 05/30/22 12:08 05/30/22 12:08 05/30/22 12:08 Height: 5 ft 8 in Weight (kg): 69.5 kg Body Mass Index: 23.3 BMI Classification: Normal - NPO >8 hours - Is Patient ?: No Home Medications and Allergies Home Medications: Ambulatory Orders Ezetimibe [Zetia] 1 tab PO DAILY 05/29/22 Lisinopril/Hydrochlorothiazide [Zestoretic 20-25 mg Tablet] 1 tab PO DAILY 05/29/22 Amlodipine/Atorvastatin [Amlodipine-Atorvast 10-10 mg] 1 each PO DAILY 10/20/16 Aspirin [Aspir-Low] 81 mg PO DAILY 10/20/16 Meloxicam [Mobic] 7.5 mg PO DAILY 10/20/16 Multivit with Calcium,Iron,Min [Multiple Vitamins For Women] 1 each PO DAILY 10/20/16 Ezetimibe [Zetia] 1 tab PO DAILY 05/29/22 Lisinopril/Hydrochlorothiazide [Zestoretic 20-25 mg Tablet] 1 tab PO DAILY 05/29/22 Allergies/Adverse Reactions: Allergies Allergy/AdvReac Type Severity Reaction Status Date / Time codeine AdvReac Nausea Verified 05/29/22 12:49 Tmrfdku-EEZ-YvA Reductase AdvReac Itching Verified 05/29/22 12:49 Inhibitor [Vrtytzh-Puc-Wzo Reductase Inhibitor] Anes History & Medical History - Anesthetic History Anesthesia Complications: reports: No previous complications - Medical History Cardiovascular: reports: Hypertension, High cholesterol Pulmonary: reports: None Gastrointestinal: reports: Colon polyps Urinary: reports: None Neuro: reports: None Musculoskeletal: reports: Osteoarthritis Endocrine/Autoimmune: reports: None Blood Disorders: reports: None Skin: reports: None Smoking Status: Current every day smoker (1/2 pack per day 30 years) Psychosocial: reports: Cannabis (occ. use) History of Cancer?: No - Surgical History General: reports: Cholecystectomy, Appendectomy, Colonoscopy Eyes Ears Nose Throat (EENT): reports: Tonsil/Adenoidectomy Gynecologic: reports: section, Hysterectomy Exam General: Alert, Oriented x3, Cooperative, No acute distress Dental: Dentures full Upper, Partials Lower Mouth Openin Fingerbreadth Neck Mobility: Normal Mallampati classification: II Thyromental Distance: 4-6 cm Mental/Cognitive Status: Alert/Oriented X3, Normal for patient Plan Anesthesia Type: General, Total IV Consent for Procedure(s) Verified and Reviewed: Yes Code Status: Attempt Resuscitation ASA classification: 2-Mild systemic disease Is this case an emergency?: No
--- NOTE | 2022-05-30 14:01 | ANESTHESIA POST OP EVALUATION ---
Anesthesia Post Eval - Post Anesthesia Eval Vitals: Last Vital Signs Temp 36.2 C L 05/30/22 13:53 Pulse 69 05/30/22 13:53 Resp 14 05/30/22 13:53 BP 91/56 L 05/30/22 13:53 Pulse Ox 96 05/30/22 13:53 O2 Flow Rate 0 05/30/22 12:08 CV Function Including HR & BP: Stable Pain Control: Satisfactory Nausea & Vomiting: Negative Mental Status: Baseline Respiratory Status: Airway Patent Hydration Status: Satisfactory Anesthesia Complications: None
[2022-05-30 14:15] VITALS: BP 133/81
== END 2022-05-30 11:51 | disposition home or self-care (01) ==
LOC: SDS 11:50
PROVIDERS: ATTEND Surgery
PROC: 0DBN8ZX Excision of Sigmoid Colon, Via Natural or Artificial Opening Endoscopic, Diagnostic (ICD-10-PCS; 2022-05-30)
PROC: 0DBH8ZX Excision of Cecum, Via Natural or Artificial Opening Endoscopic, Diagnostic (ICD-10-PCS; 2022-05-30)
PROC: 0DBK8ZX Excision of Ascending Colon, Via Natural or Artificial Opening Endoscopic, Diagnostic (ICD-10-PCS; principal; 2022-05-30 13:15)
DX: Z12.11 Encounter for screening for malignant neoplasm of colon (principal); K63.5 Polyp of colon; D12.0 Benign neoplasm of cecum; D12.2 Benign neoplasm of ascending colon; I12.9 Hypertensive chronic kidney disease with stage 1 through stage 4 chronic kidney disease, or unspecified chronic kidney disease; N18.2 Chronic kidney disease, stage 2 (mild); F17.200 Nicotine dependence, unspecified, uncomplicated
CPT/HCPCS: 45380; J7120

== ENCOUNTER 2022-07-23 06:50 | Outpatient (CLI) | payer MEDICARE ==
--- NOTE | 2022-07-23 11:39 | Ultrasound Report ---
PROCEDURE: Aorta Screening INDICATIONS: TOBACCO USE TECHNIQUE: Real time scanning was performed of the aorta and iliac arteries, with image documentatio n. COMPARISON: CT of abdomen and pelvis dated 01/11/2017. FINDINGS: Aorta: Proximal aortic diameter measures 2.9 x 2.7 cm. Mid-aorta measures 1.8 x 1.8 cm. Distal aor tic diameter is 1.4 x 1.6 cm. Iliac arteries: Right common iliac artery measures 1.1 x 1.1 cm. Left common iliac artery measures 1.1 x 1.1 cm. Incidentally noted of a cystic structure seen in left hepatic lobe measures 3.3 x 3 x 2.2 cm in size with internal thin septation. No internal vascularity is seen. IMPRESSION: 1. No evidence of abdominal aortic aneurysm. 2. Incidentally noted of a left hepatic lobe cyst with thin internal septation. Reviewed by: Ralph Arredondo MD on 07/23/2022 11:38 AM PST Approved by: Ralph Arredondo MD on 07/23/2022 11:38 AM PST Station ID: [id number]
--- NOTE | 2022-07-23 15:33 | CT Report ---
PROCEDURE: Low Dose Lung Cancer Screen INDICATIONS: TOBACCO USE TECHNIQUE: Noncontrast low-dose axial images were acquired from the pulmonary apices to the posterior costophren ic angles. Multiplanar MIP reformats were then reconstructed. For radiation dose reduction, the follo wing was used: automated exposure control, adjustment of mA and/or kV according to patient size. COMPARISON: CT lung cancer screening 10/08/2020. FINDINGS: Image quality: Adequate. Lungs and pleura: Mild emphysema. Nodules include: -Left upper lobe: 3 mm groundglass nodule laterally (4/80). No consolidation or pleural effusion. Mediastinum: No pericardial effusion. Thoracic aorta and central pulmonary arteries are normal in s ize. Esophagus is normal in caliber. Coronary artery calcifications are present. Bones and chest wall: Multilevel degenerative change of the visualized spine. No axillary or suprac lavicular adenopathy by size criteria. Abdomen: Prior cholecystectomy. Similar hypodense region in hepatic segment 2, not characterizable on this noncontrast exam but possibly a cyst. IMPRESSION: Lung-RADS Category 2: Benign. Recommendation: Continue annual screening with low-dose noncontrast chest CT in 12 months. Reviewed by: Tony Estes MD on 07/23/2022 3:31 PM PST Approved by: Tony Estes MD on 07/23/2022 3:31 PM PST Station ID: [id number]
== END 2022-07-23 06:51 | disposition home or self-care (01) ==
LOC: DI 06:50
PROVIDERS: ATTEND Physician Assistant Medical
DX: Z12.2 Encounter for screening for malignant neoplasm of respiratory organs (principal); Z13.6 Encounter for screening for cardiovascular disorders; J43.9 Emphysema, unspecified; R91.1 Solitary pulmonary nodule; F17.200 Nicotine dependence, unspecified, uncomplicated

== ENCOUNTER 2022-09-24 07:13 | Outpatient (CLI) | payer MEDICARE ==
[2022-09-24 12:16] LABS: BASOPHILS # (AUTO) 0.1 10^3/uL (0.0-0.1); BASOPHILS % (AUTO) 1.2 %; EOSINOPHILS # (AUTO) 0.2 10^3/uL (0.0-0.7); EOSINOPHILS % (AUTO) 1.9 %; HCT - HEMATOCRIT 46.6 % (37.0-47.0); HGB - HEMOGLOBIN 15.1 g/dL (12.0-16.0); LYMPHOCYTES % (AUTO) 30.5 %; MEAN CORPUSCULAR HEMOGLOBIN 30.2 pg (27.0-31.0); MEAN CORPUSCULAR HGB CONC 32.4 g/dL (32.0-36.0); MEAN CORPUSCULAR VOLUME 93.2 fL (81.0-99.0); MEAN PLATELET VOLUME 9.6 fL (7.9-10.8); MONOCYTES # (AUTO) 0.6 10^3/uL (0.0-1.0); NEUTROPHILS # (AUTO) 5.8 10^3/uL (1.5-6.6); NEUTROPHILS % (AUTO) 60.2 %; PLT - PLATELET COUNT 376 10^3/uL (130-450); RED CELL DISTRIBUTION WIDTH 13.4 % (12.0-15.0); WHITE BLOOD COUNT 9.7 x10^3/uL (4.8-10.8)
[2022-09-24 12:38] LABS: ALBUMIN 4.4 g/dL (3.2-5.5); ALBUMIN/GLOBULIN RATIO 1.4 (1.0-2.2); ALKALINE PHOSPHATASE 67 IU/L (42-121); ALT ALANINE AMINOTRANSFERASE 35 IU/L (10-60); AST ASPARTATE AMINOTRANSFERASE 30 IU/L (10-42); BILIRUBIN,TOTAL 0.9 mg/dL (0.2-1.0); BUN - BLOOD UREA NITROGEN 21 mg/dL (6-20); CARBON DIOXIDE - CO2 28 mmol/L (21-32); CHLORIDE 103 mmol/L (101-111); CHOL/HDL RATIO 4.2 (<4.4); CHOLESTEROL 288 mg/dL; CREATININE 0.9 mg/dL (0.4-1.0); GFR - MDRD 62 (>89); GLUCOSE 96 mg/dL (70-100); HDL CHOLESTEROL 69 mg/dL; LDL CHOLESTEROL,CALCULATED 200 mg/dL; LDL/HDL RATIO 2.9 (<4.4); SODIUM 142 mmol/L (135-145); TOTAL PROTEIN 7.6 g/dL (6.7-8.2); TRIGLYCERIDES 93 mg/dL; VLDL CHOLESTEROL 19 mg/dL
== END 2022-09-24 07:14 | disposition home or self-care (01) ==
LOC: LAB.N 07:13
PROVIDERS: ATTEND Physician Assistant Medical
DX: I12.9 Hypertensive chronic kidney disease with stage 1 through stage 4 chronic kidney disease, or unspecified chronic kidney disease (principal); N18.2 Chronic kidney disease, stage 2 (mild); E78.5 Hyperlipidemia, unspecified
CPT/HCPCS: 36415; 80053; 80061; 83721; 85025

== ENCOUNTER 2023-01-26 07:25 | Outpatient (CLI) | payer MEDICARE ==
[2023-01-26 12:26] LABS: ALBUMIN 4.5 g/dL (3.2-5.5); ALBUMIN/GLOBULIN RATIO 1.5 (1.0-2.2); ALKALINE PHOSPHATASE 59 IU/L (42-121); ALT ALANINE AMINOTRANSFERASE 29 IU/L (10-60); AST ASPARTATE AMINOTRANSFERASE 23 IU/L (10-42); BILIRUBIN,TOTAL 0.4 mg/dL (0.2-1.0); BUN - BLOOD UREA NITROGEN 28 mg/dL (6-20); CALCIUM 9.4 mg/dL (8.5-10.3); CARBON DIOXIDE - CO2 29 mmol/L (21-32); CHLORIDE 106 mmol/L (101-111); CHOL/HDL RATIO 2.7 (<4.4); CHOLESTEROL 182 mg/dL; CREATININE 0.9 mg/dL (0.4-1.0); GFR - MDRD 62 (>89); GLUCOSE 106 mg/dL (70-100); HDL CHOLESTEROL 67 mg/dL; LDL CHOLESTEROL,CALCULATED 91 mg/dL; LDL/HDL RATIO 1.4 (<4.4); POTASSIUM 3.9 mmol/L (3.5-5.0); SODIUM 141 mmol/L (135-145); TOTAL PROTEIN 7.6 g/dL (6.7-8.2); TRIGLYCERIDES 118 mg/dL; VLDL CHOLESTEROL 24 mg/dL
== END 2023-01-26 07:26 | disposition home or self-care (01) ==
LOC: LAB.N 07:25
PROVIDERS: ATTEND Physician Assistant Medical
DX: E78.5 Hyperlipidemia, unspecified (principal)
CPT/HCPCS: 36415; 80053; 80061; 83721

== ENCOUNTER 2023-08-04 07:39 | Outpatient (CLI) | payer MEDICARE ==
[2023-08-04 12:20] LABS: ALBUMIN 4.8 g/dL (3.2-5.5); ALBUMIN/GLOBULIN RATIO 1.7 (1.0-2.2); ALKALINE PHOSPHATASE 65 IU/L (42-121); ALT ALANINE AMINOTRANSFERASE 28 IU/L (10-60); AST ASPARTATE AMINOTRANSFERASE 26 IU/L (10-42); BILIRUBIN,TOTAL 0.6 mg/dL (0.2-1.0); BUN - BLOOD UREA NITROGEN 19 mg/dL (6-20); CALCIUM 9.8 mg/dL (8.5-10.3); CARBON DIOXIDE - CO2 29 mmol/L (21-32); CHLORIDE 104 mmol/L (101-111); CHOL/HDL RATIO 2.7 (<4.4); CHOLESTEROL 173 mg/dL; CREATININE 0.9 mg/dL (0.6-1.3); GFR - MDRD 62 (>89); GLUCOSE 89 mg/dL (74-104); HDL CHOLESTEROL 63 mg/dL; LDL CHOLESTEROL,CALCULATED 87 mg/dL; LDL/HDL RATIO 1.4 (<4.4); POTASSIUM 3.5 mmol/L (3.5-4.5); SODIUM 140 mmol/L (135-145); TOTAL PROTEIN 7.7 g/dL (6.4-8.9); TRIGLYCERIDES 117 mg/dL (48-352); VLDL CHOLESTEROL 23 mg/dL
== END 2023-08-04 07:40 | disposition home or self-care (01) ==
LOC: LAB.N 07:39
PROVIDERS: ATTEND Physician Assistant Medical
DX: E78.5 Hyperlipidemia, unspecified (principal)
CPT/HCPCS: 36415; 80053; 80061; 83721

== ENCOUNTER 2023-08-07 13:10 | Outpatient (CLI) | payer MEDICARE ==
--- NOTE | 2023-08-10 01:50 | CT Report ---
PROCEDURE: Lung Cancer Screen INDICATIONS: TOBACCO USE TECHNIQUE: A CT scan of the chest was performed. Intravenous contrast media was not administered. Images were re corded and evaluated at appropriate window settings. Reformats: axial MIP of the chest, coronal and s agittal. For radiation dose reduction, the following was used: automated exposure control, adjustment of mA and/or kV according to patient size. COMPARISON: CT low dose lung cancer screen 07/23/2022. FINDINGS: Image quality: Diagnostic. Prior cancer history: No. Lungs and pleura: No pleural effusions. No pneumothorax. Mild emphysematous changes. Mild bilateral atelectasis. Redemonstration of left upper lobe 3 mm nodule which appears more solid, previously desc ribed as groundglass (, MIP image 42). No new or enlarging pulmonary nodule. Mediastinum: Heart size is normal. No pericardial effusion. No large vessel abnormality. No mediastin al adenopathy by size criteria. Coronary artery calcifications. Chest wall and lower neck: Thyroid is unremarkable. No axillary or supraclavicular adenopathy by size . Bones: No acute or suspicious osseous abnormality. Upper Abdomen: Stable left PICC lobe hypodensity, probable cyst. Status post cholecystectomy.. IMPRESSION: Stable pulmonary micronodules. No new or enlarging pulmonary nodule. Lung RAD: 2 - Benign. Recommendation: Continue annual screening in 12 Months with LDCT Non-Lung Significant Findings: None. Reviewed by: Raeann Goddard MD on 08/10/2023 1:48 AM PST Approved by: Raeann Goddard MD on 08/10/2023 1:48 AM PST Station ID: [id number]
== END 2023-08-07 13:11 | disposition home or self-care (01) ==
LOC: DI 13:10
PROVIDERS: ATTEND Physician Assistant Medical
DX: Z12.2 Encounter for screening for malignant neoplasm of respiratory organs (principal); R91.8 Other nonspecific abnormal finding of lung field; F17.200 Nicotine dependence, unspecified, uncomplicated